=== PATIENT | female | born 2000 | race Caucasian/White ===

== ENCOUNTER 2019-08-23 07:29 | Emergency (ER) | payer BC ==
[2019-08-23 07:45] VITALS: BP 106/57
--- NOTE | 2019-08-23 07:46 | UC ---
Respiratory Complaint HPI - HPI Summary HPI Summary: 19 year old female presents with a complaint of sore throat, sinus congestion headache and cough for 3 days. - History of Current Complaint Chief Complaint: UCGeneralIllness Stated Complaint: ST,SINUS,EAR PAIN,COUGH Time Seen by Provider: 08/23/19 07:45 Hx Obtained From: Patient Hx Last Menstrual Period: 08/09/19 ?: No Pain Intensity: 7 Alleviating Factors: OTC Meds - ibuprofen, mucinex - Allergies/Home Medications Allergies/Adverse Reactions: Allergies Allergy/AdvReac Type Severity Reaction Status Date / Time No Known Allergies Allergy Verified 08/23/19 07:45 Home Medications: Home Medications Norethindrone-E.estradiol-Iron [Junel Fe 1 mg-20 Mcg Tablet] 1 tab PO DAILY [History Confirmed 08/23/19] PMH/Surg Hx/FS Hx/Imm Hx Previously Healthy: Yes - Surgical History Surgical History: None - Family History Known Family History: Positive: None - Social History Alcohol Use: None Substance Use Type: None Smoking Status (MU): Never Smoked Tobacco Review of Systems All Other Systems Reviewed And Are Negative: Yes Constitutional: Positive: Fever - 99 @ home Skin: Positive: Negative Eyes: Positive: Negative ENT: Positive: Sore Throat, Nasal Discharge, Sinus Congestion Respiratory: Positive: Cough - slight Gastrointestinal: Positive: Negative Genitourinary: Positive: Negative Motor: Positive: Negative Neurovascular: Positive: Negative Musculoskeletal: Positive: Negative Neurological: Positive: Negative Psychological: Positive: Negative Is Patient Immunocompromised?: No Physical Exam Triage Information Reviewed: Yes Appearance: Well-Appearing Vital Signs: Initial Vital Signs Temp 100.1 F 08/23/19 07:40 Pulse 102 08/23/19 07:40 Resp 16 08/23/19 07:40 BP 106/57 08/23/19 07:40 Pulse Ox 100 08/23/19 07:40 Vital Signs Reviewed: Yes Eyes: Positive: Conjunctiva Clear ENT: Positive: Pharyngeal erythema - no exudate, Nasal congestion, TMs normal, Uvula midline Neck: Positive: Supple, Nontender, No Lymphadenopathy. Negative: Nuchal Rigidity Respiratory: Positive: Chest non-tender, Normal breath sounds. Negative: Crackles, Rhonchi, Wheezing Cardiovascular: Positive: No Murmur, Brisk Capillary Refill, Tachycardia Abdomen Description: Positive: Nontender, Soft Musculoskeletal Exam: Normal Neurological Exam: Normal Psychological Exam: Normal Skin Exam: Normal Respiratory Course/Dx - Differential Dx/Diagnosis Differential Diagnosis/HQI/PQRI: Bronchitis, Sinusitis Provider Diagnosis: Strep pharyngitis Discharge ED - Sign-Out/Discharge Documenting (check all that apply): Patient Departure All imaging exams completed and their final reports reviewed: Yes - Discharge Plan Condition: Stable Disposition: HOME Prescriptions: Penicillin VK 500 MG TAB(NF) [Penicillin VK 500 mg Tab] 500 mg PO TID 10 Days # 30 tab Patient Education Materials: Strep Throat (ED) Forms: *Work Release Referrals: No Primary Care Phys,NOPCP [Primary Care Provider] - Additional Instructions: Take Penicillin as prescribed, salt water gargles for sore throat and ibuprofen over the counter as needed for pain/fever. Follow-up with your primary care physician if symptoms persist or worsen. - Billing Disposition and Condition Condition: STABLE Disposition: Home
== END 2019-08-23 08:04 | disposition home or self-care (01) ==
LOC: UCCORT 07:29
DX: J02.0 Streptococcal pharyngitis (principal)
CPT/HCPCS: 87651; 99202; G0463

== ENCOUNTER 2019-09-14 15:10 | Emergency (ER) | payer BC ==
[2019-09-14 15:58] VITALS: BP 112/59
--- NOTE | 2019-09-14 15:59 | UC ---
Throat Pain/Nasal [place]ayne HPI - HPI Summary HPI Summary: 19-year-old female who had strep pharyngitis approximate 3 weeks ago. She was started on penicillin and took it for 3 days without improvement so then she went to the emergency room and was started on amoxicillin and the strep throat resolved. She states she's had continued right ear and concerns where her right ear is plugged and she cannot hear out of it since she had strep. - History of Current Complaint Stated Complaint: RT EAR PAIN Time Seen by Provider: 09/14/19 15:52 Hx Obtained From: Patient Hx Last Menstrual Period: 08/09/19 ?: No Onset/Duration: Gradual Onset Severity: Mild Cough: None Associated Signs & Symptoms: Positive: Negative - Allergies/Home Medications Allergies/Adverse Reactions: Allergies Allergy/AdvReac Type Severity Reaction Status Date / Time No Known Allergies Allergy Verified 09/14/19 15:53 Home Medications: Home Medications Ibuprofen TAB* [Advil TAB*] 2 tab PO ONCE 09/14/19 [History Confirmed 09/14/19] PMH/Surg Hx/FS Hx/Imm Hx Previously Healthy: Yes - Surgical History Surgical History: None - Family History Known Family History: Positive: None, Non-Contributory - Social History Occupation: Student Lives: Dormitory/Roommates Alcohol Use: None Substance Use Type: None Smoking Status (MU): Never Smoked Tobacco Review of Systems All Other Systems Reviewed And Are Negative: Yes ENT: Positive: Sore Throat, Other - Right ear is plugged and has been for the past 3 weeks. Is Patient Immunocompromised?: No Physical Exam Triage Information Reviewed: Yes Appearance: Well-Appearing, No Pain Distress, Well-Nourished Vital Signs Reviewed: Yes Eyes: Positive: Conjunctiva Clear ENT: Positive: Pharyngeal erythema - Mild pharyngeal erythema., TMs normal, Uvula midline Neck: Positive: Supple, Nontender, No Lymphadenopathy Respiratory: Positive: Lungs clear, Normal breath sounds, No respiratory distress, No accessory muscle use Cardiovascular: Positive: RRR, No Murmur, Pulses Normal, Brisk Capillary Refill Musculoskeletal Exam: Normal Neurological Exam: Normal Psychological Exam: Normal Skin Exam: Normal Throat Pain/Nasal Course/Dx - Course Course Of Treatment: Rapid strep test: Negative I am going to give the patient a prescription for Flonase 2 sprays in each nostril once a day for a week and then one spray in each nostril once a day for a week. Next week she'll be home for [facility] and she can follow-up with an ear nose and throat physician if she continues to have problems with her right ear. - Differential Dx/Diagnosis Provider Diagnosis: Otalgia, right ear, Pharyngitis Discharge ED - Sign-Out/Discharge Documenting (check all that apply): Patient Departure All imaging exams completed and their final reports reviewed: No Studies - Discharge Plan Condition: Good Disposition: HOME Prescriptions: Fluticasone NASAL SPRAY 50MCG* [Flonase NASAL SPRAY 50MCG*] 2 spray BOTH NARES DAILY 7 Days #1 btl Patient Education Materials: Upper Respiratory Infection (DC) Referrals: No Primary Care Phys,NOPCP [Primary Care Provider] - CHAN JACKSON [[employer], APPLICATION, OTHER] - Additional Instructions: Increase fluids, if no improvement with the Flonase follow-up with your primary care provider at home or an ear nose and throat physician. - Billing Disposition and Condition Condition: GOOD Disposition: Home - Attestation Statements Provider Attestation: This patient was not seen by me. I was available for consult. Chart reviewed. HUGO
== END 2019-09-14 16:28 | disposition home or self-care (01) ==
LOC: UCCORT 15:10
DX: H92.01 Otalgia, right ear (principal); J02.9 Acute pharyngitis, unspecified
CPT/HCPCS: 87651; 99212; G0463

== ENCOUNTER 2019-12-10 08:51 | Emergency (ER) | payer BC ==
[2019-12-10 09:19] VITALS: BP 118/63
--- NOTE | 2019-12-10 09:55 | UC ---
Throat Pain/Nasal Blayne HPI - HPI Summary HPI Summary: 19-year-old college female who has had headache, head congestion and nasal congestion. She did not get a flu shot in fall. She is around other people with similar symptoms. - History of Current Complaint Chief Complaint: UCHeadache Stated Complaint: CHRISTIANSEN,CONGESTION Time Seen by Provider: 12/10/19 09:55 Hx Obtained From: Patient Hx Last Menstrual Period: 11/28/19 ?: No Onset/Duration: Gradual Onset Severity: Mild Pain Intensity: 9 Cough: Nonproductive Associated Signs & Symptoms: Positive: Nasal Discharge, Fever - Allergies/Home Medications Allergies/Adverse Reactions: Allergies Allergy/AdvReac Type Severity Reaction Status Date / Time No Known Allergies Allergy Verified 12/10/19 09:16 PMH/Surg Hx/FS Hx/Imm Hx Previously Healthy: Yes - Surgical History Surgical History: None - Family History Known Family History: Positive: None, Non-Contributory - Social History Occupation: Student Lives: Dormitory/Roommates Alcohol Use: Occasionally Substance Use Type: None Smoking Status (MU): Never Smoked Tobacco Review of Systems All Other Systems Reviewed And Are Negative: Yes Constitutional: Positive: Fever - Patient had fever earlier in the week. ENT: Positive: Nasal Discharge, Sinus Congestion Respiratory: Positive: Cough - Nonproductive cough. Neurological/Mental Status: Positive: Headache Is Patient Immunocompromised?: No Physical Exam Triage Information Reviewed: Yes Appearance: Well-Appearing, No Pain Distress, Well-Nourished Vital Signs: Initial Vital Signs Temp 97.8 F 12/10/19 09:15 Pulse 61 12/10/19 09:15 Resp 16 12/10/19 09:15 BP 118/63 12/10/19 09:15 Pulse Ox 100 12/10/19 09:15 Vital Signs Reviewed: Yes Eyes: Positive: Conjunctiva Clear ENT: Positive: Pharynx normal, Nasal drainage - Clear nasal coryza, TMs normal, Uvula midline Neck: Positive: Supple, Nontender, No Lymphadenopathy Respiratory: Positive: Lungs clear, Normal breath sounds, No respiratory distress, No accessory muscle use Cardiovascular: Positive: RRR, No Murmur, Pulses Normal, Brisk Capillary Refill Musculoskeletal Exam: Normal Neurological Exam: Normal Psychological Exam: Normal Skin Exam: Normal Throat Pain/Nasal Course/Dx - Course Course Of Treatment: Patient is comfortable here and does not appear ill. - Differential Dx/Diagnosis Provider Diagnosis: URI (upper respiratory infection) Discharge ED - Sign-Out/Discharge Documenting (check all that apply): Patient Departure All imaging exams completed and their final reports reviewed: No Studies - Discharge Plan Condition: Good Disposition: HOME Patient Education Materials: Upper Respiratory Infection (ED) Forms: *School Release Referrals: No Primary Care Phys,NOPCP [Primary Care Provider] - CHAN JACKSON [[employer], [employer], OTHER] - Additional Instructions: Increase fluids, rest, [facility] 3 or 4 days if no improvement - Billing Disposition and Condition Condition: GOOD Disposition: Home
== END 2019-12-10 10:10 | disposition home or self-care (01) ==
LOC: UCCORT 08:51
DX: J06.9 Acute upper respiratory infection, unspecified (principal)
CPT/HCPCS: 99211; G0463